=== PATIENT | female | born 1995 | race Caucasian/White ===

== ENCOUNTER 2017-07-30 22:08 | Emergency (ER) | payer OTHER ==
--- NOTE | 2017-07-30 22:25 | ER Report ---
History and Physical Time Seen By MD: 22:26 Hx. of Stated Complaint: PT TOOK NIGHT TIME MEDICINE, WOKE UP AND WAS UNABLE TO MOVE AND FELT "DRUNK." HPI/ROS CHIEF COMPLAINT: feeling abnormal after taking medications HISTORY OF PRESENT ILLNESS: This is a 22 year old female. She has felt like she has the "flu" the last few days. She has had a scratchy throat, cough, and some ear soreness. She also is starting her period and having some cramps. Took Ibuprofen earlier. Took daytime cold medicine (generic of DayQuil) and then tonight the generic for Nyquil. She woke up and was feeling very confused, almost like she was drunk or in a dream state. Could not think right. Feeling better now, but still a little that way. She has never had this happen in the past and has taken these medicines previously. No drugs or alcohol. No other medications. No unusual foods or exposures. Had been eating and drinking normally today and felt like she has had a good amount of fluid. No fevers or chills right now. Normal vision, no headache. Does feel a little dizzy. Normal bowel movements without diarrhea. No dysuria, frequency or urgency although she is urinating a little bit more. She is drinking more fluids. Allergies: Coded Allergies: No Known Drug Allergies (Unverified , 07/30/17) Home Meds No Active Prescriptions or Reported Meds Reviewed Nurses Notes: Yes Constitutional Vital Sign - Last 24 Hours 07/30/17 07/30/17 07/30/17 07/30/17 22:12 22:20 22:23 22:38 Temp 98.5 Pulse 107 107 110 Resp 16 B/P (MAP) 120/98 (105) 120/98 Pulse Ox 93 97 96 O2 Delivery Room Air 07/30/17 07/31/17 23:08 00:41 Pulse 85 Resp 16 B/P (MAP) 115/72 (86) Pulse Ox 100 92 O2 Delivery Room Air Physical Exam General Appearance: The patient is alert. No acute distress, but is anxious. She is non-toxic in her appearance. Eyes: Pupils are equal, round. Reactive to light. No pallor, injection or icterus. Extraocular movements are intact. ENT: Mucous membranes are moist. Normal oral mucosa. Posterior oropharynx has mild erythema, but no exudates or hypertrophy. TMs show bilateral effusions, but no redness and normal contour. Neck: Supple, has some discomfort with palpation in submandibular and anterior cervical with some lymphadenopathy as well. Respiratory: Lungs are clear to auscultation. Cardiovascular: Regular rate and rhythm. No murmurs, gallops or rubs. Normal capillary refill. Gastrointestinal: Abdomen is soft, some lower abdominal discomfort. Nondistended. Normal active bowel sounds. No CVA tenderness with percussion. Neurological: Alert and oriented x3. Skin: Warm and dry. No rashes. Musculoskeletal: Extremities are nontender. No tenderness in palpation of the cervical, thoracic and lumbar spine. DIFFERENTIAL DIAGNOSIS: After history and physical exam, differential diagnosis was considered for abnormal feeling tonight, unsure if this is medicine related or not. Could be combination of factors that she has been feeling sick with a viral infection. Medical Decision Making Data Points Result Diagram: 07/30/17 23007/30/17 230 Laboratory Hematology Test 07/30/17 22:50 07/30/17 23:00 Urine Color Straw Urine Clarity Clear Urine pH 6.0 pH (4.8-9.5) Urine Specific [place] 1.002 Urine Protein Negative mg/dL (NEGATIVE) Urine Glucose (UA) Negative mg/dL (NEGATIVE) Urine Ketones Trace mg/dL (NEGATIVE) Urine Blood Moderate (NEGATIVE) Urine Nitrite Negative (NEGATIVE) Urine Bilirubin Negative (NEGATIVE) Urine Urobilinogen Negative mg/dL (0.2-1.9) Urine Leukocyte Esterase Negative (NEGATIVE) Urine RBC 2 /HPF (0-2/HPF) Urine WBC 1 /HPF (0-5/HPF) Urine Squamous Epithelial Cells Many /LPF (</=FEW) Urine Bacteria Few /HPF (NONE-FEW) Urine Mucus None /HPF (NONE-FEW) Red Blood Count 4.68 M/uL (4.17-5.56) Mean Corpuscular Volume 81.0 fL (80.0-96.0) Mean Corpuscular Hemoglobin 28.2 pg (26.0-33.0) Mean Corpuscular Hemoglobin Concent 34.8 g/dL (32.0-36.0) Red Cell Distribution Width 13.7 % (11.5-14.5) Mean Platelet Volume 9.2 fL (7.2-11.1) Neutrophils (%) (Auto) 79.3 % (39.4-72.5) Lymphocytes (%) (Auto) 12.3 % (17.6-49.6) Monocytes (%) (Auto) 8.1 % (4.1-12.4) Eosinophils (%) (Auto) 0.1 % (0.4-6.7) Basophils (%) (Auto) 0.2 % (0.3-1.4) Nucleated RBC Relative Count (auto) 0.0 /100WBC Neutrophils # (Auto) 7.7 K/uL (2.0-7.4) Lymphocytes # (Auto) 1.2 K/uL (1.3-3.6) Monocytes # (Auto) 0.8 K/uL (0.3-1.0) Eosinophils # (Auto) 0.0 K/uL (0.0-0.5) Basophils # (Auto) 0.0 K/uL (0.0-0.1) Nucleated RBC Absolute Count (auto) 0.00 K/uL Sodium Level 143 mmol/L (137-145) Potassium Level 3.2 mmol/L (3.5-5.0) Chloride Level 102 mmol/L (98-107) Carbon Dioxide Level 23 mmol/L (22-31) Blood Urea Nitrogen 7 mg/dl (7-18) Creatinine 0.70 mg/dl (0.52-1.04) Glomerular Filtration Rate Calc > 60.0 Random Glucose 88 mg/dl (75-110) Calcium Level 10.3 mg/dl (8.4-10.2) Total Bilirubin 0.6 mg/dl (0.2-1.3) Aspartate Amino Transf (AST/SGOT) 22 U/L (0-35) Alanine Aminotransferase (ALT/SGPT) 20 U/L (0-56) Alkaline Phosphatase 61 U/L (0-126) Total Protein 8.2 gm/dl (6.3-8.2) Albumin 4.7 g/dl (3.5-5.0) Human Chorionic Gonadotropin, Qual Negative (NEGATIVE) Influenza Virus Type A (PCR) Negative (NEGATIVE) Influenza Virus Type B (PCR) Negative (NEGATIVE) Chemistry Test 07/30/17 22:50 07/30/17 23:00 Urine Color Straw Urine Clarity Clear Urine pH 6.0 pH (4.8-9.5) Urine Specific [place] 1.002 Urine Protein Negative mg/dL (NEGATIVE) Urine Glucose (UA) Negative mg/dL (NEGATIVE) Urine Ketones Trace mg/dL (NEGATIVE) Urine Blood Moderate (NEGATIVE) Urine Nitrite Negative (NEGATIVE) Urine Bilirubin Negative (NEGATIVE) Urine Urobilinogen Negative mg/dL (0.2-1.9) Urine Leukocyte Esterase Negative (NEGATIVE) Urine RBC 2 /HPF (0-2/HPF) Urine WBC 1 /HPF (0-5/HPF) Urine Squamous Epithelial Cells Many /LPF (</=FEW) Urine Bacteria Few /HPF (NONE-FEW) Urine Mucus None /HPF (NONE-FEW) White Blood Count 9.7 k/uL (4.5-11.0) Red Blood Count 4.68 M/uL (4.17-5.56) Hemoglobin 13.2 g/dL (12.0-16.0) Hematocrit 37.9 % (34.0-47.0) Mean Corpuscular Volume 81.0 fL (80.0-96.0) Mean Corpuscular Hemoglobin 28.2 pg (26.0-33.0) Mean Corpuscular Hemoglobin Concent 34.8 g/dL (32.0-36.0) Red Cell Distribution Width 13.7 % (11.5-14.5) Platelet Count 160 K/uL (150-450) Mean Platelet Volume 9.2 fL (7.2-11.1) Neutrophils (%) (Auto) 79.3 % (39.4-72.5) Lymphocytes (%) (Auto) 12.3 % (17.6-49.6) Monocytes (%) (Auto) 8.1 % (4.1-12.4) Eosinophils (%) (Auto) 0.1 % (0.4-6.7) Basophils (%) (Auto) 0.2 % (0.3-1.4) Nucleated RBC Relative Count (auto) 0.0 /100WBC Neutrophils # (Auto) 7.7 K/uL (2.0-7.4) Lymphocytes # (Auto) 1.2 K/uL (1.3-3.6) Monocytes # (Auto) 0.8 K/uL (0.3-1.0) Eosinophils # (Auto) 0.0 K/uL (0.0-0.5) Basophils # (Auto) 0.0 K/uL (0.0-0.1) Nucleated RBC Absolute Count (auto) 0.00 K/uL Glomerular Filtration Rate Calc > 60.0 Calcium Level 10.3 mg/dl (8.4-10.2) Total Bilirubin 0.6 mg/dl (0.2-1.3) Aspartate Amino Transf (AST/SGOT) 22 U/L (0-35) Alanine Aminotransferase (ALT/SGPT) 20 U/L (0-56) Alkaline Phosphatase 61 U/L (0-126) Total Protein 8.2 gm/dl (6.3-8.2) Albumin 4.7 g/dl (3.5-5.0) Human Chorionic Gonadotropin, Qual Negative (NEGATIVE) Influenza Virus Type A (PCR) Negative (NEGATIVE) Influenza Virus Type B (PCR) Negative (NEGATIVE) Urinalysis Test 07/30/17 22:50 Urine Color Straw Urine Clarity Clear Urine pH 6.0 pH (4.8-9.5) Urine Specific [place] 1.002 Urine Protein Negative mg/dL (NEGATIVE) Urine Glucose (UA) Negative mg/dL (NEGATIVE) Urine Ketones Trace mg/dL (NEGATIVE) Urine Blood Moderate (NEGATIVE) Urine Nitrite Negative (NEGATIVE) Urine Bilirubin Negative (NEGATIVE) Urine Urobilinogen Negative mg/dL (0.2-1.9) Urine Leukocyte Esterase Negative (NEGATIVE) Urine RBC 2 /HPF (0-2/HPF) Urine WBC 1 /HPF (0-5/HPF) Urine Squamous Epithelial Cells Many /LPF (</=FEW) Urine Bacteria Few /HPF (NONE-FEW) Urine Mucus None /HPF (NONE-FEW) EKG/Imaging Imaging CHEST: Indication: Dyspnea. Technique: Frontal and lateral views were obtained. Comparison: None. Skeletal and soft tissue structures: There is minimal dextroscoliosis in the thoracic spine. No acute skeletal deformity is identified. Heart and mediastinum: Within normal limits. Lung alberts: Well-expanded and clear. Pleural spaces: Unremarkable. Impression: No acute process. Report Dictated By: Juan Coley MD at 07/30/2017 11:27 PM ED Course/Re-evaluation Clinical Indication for ER IV: Hydration, IV Access ED Course Feeling improved on re-evaluation. Labs unremarkable as noted, except mild decrease in potassium. Urine with some blood on dipstick and ketones on dipstick. looks like contamination on microscopic, but will get urine culture. Decision to Disposition Date: Jul 31, 2017 Decision to Disposition Time: 00:34 Depart Departure Latest Vital Signs Vital Signs Date Time Temp Pulse Resp B/P (MAP) Pulse Ox O2 Delivery O2 Flow Rate FiO2 07/31/17 00:41 85 16 115/72 (86) 92 Room Air 07/30/17 22:20 98.5 Impression: Primary Impression: Adverse reaction to common cold remedy Additional Impression: Upper respiratory infection Condition: Improved Disposition: HOME OR SELF-CARE New Scripts No Active Prescriptions or Reported Meds Patient Instructions: Adverse Drug Reaction (ED), Upper Respiratory Infection ( ED) Additional Instructions: Rest and increase fluids. Your potassium was just a little bit low, so would recommend eating some foods high in potassium and then having a repeat blood test in a few weeks to re- check your potassium. You can keep using Ibuprofen or Tylenol as needed for pain. Problem Qualifiers Primary Impression: Adverse reaction to common cold remedy Encounter type: initial encounter Qualified Codes: T48.5X5A - Adverse effect of other [id number] drugs, initial encounter Additional Impression: Upper respiratory infection URI type: unspecified URI Qualified Codes: J06.9 - Acute upper respiratory infection, unspecified YU HARDIN MD Jul 30, 2017 22:25
[2017-07-30] MEDS ORDERED: NS(*) 0.9% 1000 ML BAG 1,000 ML IV ONE (22:45)
[2017-07-30 23:14] LABS: PLATELET COUNT, AUTOMATED 160 K/uL (150-450)
--- NOTE | 2017-07-30 23:32 | RADIOLOGY IMAGING REPORT ---
FACILITY: [facility] PATIENT NAME: Jadyn Srivastava : 1995 MR: [id number] V: [id number] EXAM DATE: ORDERING PHYSICIAN: YU HARDIN TECHNOLOGIST: Location: [facility] Patient: Jadyn Srivastava : 1995 Visit/Account:[id number] Date of Sevice: 07/30/2017 CHEST: Indication: Dyspnea. Technique: Frontal and lateral views were obtained. Comparison: None. Skeletal and soft tissue structures: There is minimal dextroscoliosis in the thoracic spine. No acute skeletal deformity is identified. Heart and mediastinum: Within normal limits. Lung alberts: Well-expanded and clear. Pleural spaces: Unremarkable. Impression: No acute process. Report Dictated By: Juan Coley MD at 07/30/2017 11:27 PM Report E-Signed By: Juan Coley MD at 07/30/2017 11:28 PM [id number]
[2017-07-31 00:41] VITALS: BP 115/72
== END 2017-07-31 00:45 | disposition home or self-care (01) ==
LOC: ER 22:33
DX: T48.5X5A Adverse effect of other anti-common-cold drugs, initial encounter (principal); J06.9 Acute upper respiratory infection, unspecified; R35.0 Frequency of micturition
CPT/HCPCS: 71046; 81001; 84703; 85025; 87088; 87502; 96360; 99283; J7030; 82040; 82247; 82310; 82374; 82435; 82565; 82947; 84075; 84132; 84155; 84295; 84450; 84460; 84520; 99284